=== PATIENT | male | born 1940 | race African-American/Black ===

== ENCOUNTER 2018-11-01 16:50 | Inpatient (IN) ==
[2018-11-01 17:41] LABS: Basophils % 0.9 % (0.0-0.8); Eosinophils # 0.2 10*3/uL (0.0-0.87); Eosinophils % 4.2 % (0.00-10.9); Hematocrit 39.4 VOL% (42.0-52.0); Hemoglobin 12.4 GM/DL (14.0-18.0); Immature Granulocytes % 0.2 %; Immature Granulocytes Absolute 0.01 #; Lymphocytes % 22.3 % (21.2-54.2); Mean Corpuscular HGB Conc 31.5 GM/DL (32-36); Mean Corpuscular Hemoglobin 28 PG (27-34); Mean Corpuscular Volume 87.8 FL (87-102); Mean Platelet Volume 11.1 FL (9.6-12.0); Monocytes # 0.4 10*3/uL (0.11-0.8); Monocytes % 8.8 % (1.7-12.7); Neutrophils # 2.7 10*3/uL (1.4-7.4); Neutrophils % 63.6 % (38.7-73.9); Platelet Count 182 T/CUMM (130-400); Red Blood Count 4.49 MC/CUMM (3.8-5.5); White Blood Count 4.3 T/CUMM (4-12)
[2018-11-01] MEDS ORDERED: hydrALAZINE 20 MG/1 ML VIAL IV STA (17:52)
[2018-11-01] MEDS ORDERED: ALBUTEROL/IPRATROPIUM 3 ML NEB RESP TX STA (17:53)
[2018-11-01] MEDS ORDERED: ALBUTEROL 2.5 MG/3 ML NEB RESP TX STA (17:53)
[2018-11-01 18:07] LABS: Albumin 3.6 G/DL (3.4-5.0); Bilirubin,Total 1.3 MG/DL (0.2-1.0); Calcium 9.6 MG/DL (8.5-10.1); Osmolality,Calculated 290.1 MOS/KG (273-304); Potassium 3.2 MMOL/L (3.5-5.1); Total Protein 7.8 G/DL (6.4-8.3)
[2018-11-01] MEDS ORDERED: FUROSEMIDE 40 MG/4 ML VIAL IV STA (18:38)
[2018-11-01] MEDS ORDERED: ALBUTEROL/IPRATROPIUM 3 ML NEB RESP TX PRN (19:51)
[2018-11-01] MEDS ORDERED: POTASSIUM CHLORIDE 20 MEQ TABLET PO STA (22:00)
[2018-11-01] MEDS ORDERED: GLUCAGON 1 MG VIAL IM PRN (22:00)
[2018-11-01] MEDS ORDERED: SENNA 8.6 MG TABLET PO PRN (22:00)
[2018-11-01] MEDS ORDERED: DEXTROSE 50% 25 GM/50 ML SYRINGE IV PRN (22:00)
[2018-11-01] MEDS ORDERED: LEVOFLOXACIN INJ 150 ML IV ONE (22:44)
[2018-11-01 23:11] LABS: Troponin I 0.038 NG/ML (0.00-0.045)
[2018-11-01] MEDS: INSULIN REGULAR 100 UNIT/ML SUBCUT SCH (23:30)
[2018-11-01] MEDS: MAGNESIUM CHLORIDE 64 MG TABLET PO SCH (23:30)
[2018-11-01] MEDS: CARVEDILOL 25 MG TABLET PO SCH (23:30)
[2018-11-02] MEDS ORDERED: LEVOFLOXACIN INJ 750 MG in PREMIX 1 EACH IV SCH (00:30)
[2018-11-02 05:54] LABS: Alanine Aminotransferase 32 U/L (16-61); Alkaline Phosphatase 244 U/L (45-117); Aspartate Amino Transferase 30 U/L (0-37); Bilirubin,Indirect 0.4 MG/DL (0.0-1.0); Total Protein 6.7 G/DL (6.4-8.3); Troponin I 0.041 NG/ML (0.00-0.045)
[2018-11-02] MEDS: FUROSEMIDE 40 MG/4 ML VIAL IV SCH ×2 (08:38→17:56)
[2018-11-02] MEDS: CARVEDILOL 25 MG TABLET PO SCH (08:40)
[2018-11-02] MEDS: MAGNESIUM CHLORIDE 64 MG TABLET PO SCH (08:40)
[2018-11-02] MEDS ORDERED: COENZYME Q10 100 MG CAPSULE PO SCH (09:00)
[2018-11-02] MEDS ORDERED: TAMSULOSIN 0.4 MG CAPSULE PO SCH (09:00)
[2018-11-02] MEDS ORDERED: MULTIVITAMIN (CENTRUM) TABLET PO SCH (09:00)
[2018-11-02] MEDS ORDERED: LOSARTAN 50 MG TABLET PO SCH (09:00)
[2018-11-02] MEDS ORDERED: SPIRONOLACTONE 25 MG TABLET PO SCH (09:00)
[2018-11-02] MEDS ORDERED: ASPIRIN 325 MG TABLET PO SCH (09:00)
[2018-11-02] MEDS ORDERED: ATORVASTATIN 20 MG TABLET PO SCH (09:00)
[2018-11-02] MEDS ORDERED: POTASSIUM CHLORIDE 20 MEQ TABLET PO SCH (09:00)
[2018-11-02] MEDS ORDERED: OLMESARTAN MEDOXOMIL 40 MG PO SCH (09:00)
[2018-11-02] MEDS: INSULIN REGULAR 100 UNIT/ML SUBCUT SCH ×3 (09:20→16:24)
[2018-11-02] MEDS ORDERED: POTASSIUM CHLORIDE RIDER 10 MEQ in PREMIX 1 EACH IV PRN (11:57)
[2018-11-02 12:43] LABS: Calcium 9.4 MG/DL (8.5-10.1); Osmolality,Calculated 292.8 MOS/KG (273-304); Potassium 3.5 MMOL/L (3.5-5.1)
[2018-11-02] MEDS ORDERED: hydrALAZINE 20 MG/1 ML VIAL IV PRN (16:50)
[2018-11-02 18:04] VITALS: BP 134/78
[2018-11-02 19:54] LABS: Lymphocytes,Pleural Fluid 34 %; Monocytes,Pleural Fluid 37 %; Neutrophils,Pleural Fluid 29 %
[2018-11-02 20:09] LABS: RBC,Pleural Fluid 3317 T/CUMM
[2018-11-03] MEDS ORDERED: OLMESARTAN 20 MG TABLET PO SCH (09:00)
== END 2018-11-02 19:18 | disposition home or self-care (01) | DRG 291 ==
LOC: N.ED 16:50 → N.EDINP 18:57 → N.TELES 11-02 14:00
PROVIDERS: ADMIT Internal Medicine; ATTEND Internal Medicine